=== PATIENT | female | born 1995 | race Two or more races ===

== ENCOUNTER 2023-02-25 04:49 | Outpatient (CLI) | payer OTHER ==
[~2023-02-25] VITALS: Ht 182.9 cm; Wt 143.1 kg
[2023-02-25] MEDS ORDERED: TUMS500C PO (05:04)
[2023-02-25] MEDS ORDERED: REGL10TA6 PO (05:04)
[2023-02-25] MEDS ORDERED: HOME MED LIST COMPLETE! XX SCH (05:05)
[2023-02-25 06:01] VITALS: BP 104/55
== END 2023-02-25 06:39 | disposition home or self-care (01) ==
LOC: M LDO 04:49
PROVIDERS: ATTEND Specialist
DX: O36.8120 Decreased fetal movements, second trimester, not applicable or unspecified (principal); O30.042 Twin pregnancy, dichorionic/diamniotic, second trimester; O99.212 Obesity complicating pregnancy, second trimester; E66.9 Obesity, unspecified; O99.612 Diseases of the digestive system complicating pregnancy, second trimester; K50.90 Crohn's disease, unspecified, without complications; O99.842 Bariatric surgery status complicating pregnancy, second trimester; Y92.9 Unspecified place or not applicable; Y93.9 Activity, unspecified; Y99.9 Unspecified external cause status; Z04.1 Encounter for examination and observation following transport accident; Z3A.27 27 weeks gestation of pregnancy
CPT/HCPCS: 59025; G0463

== ENCOUNTER → 2023-03-05 | Outpatient (CLI) | payer OTHER ==
[~2023-03-05] MED LIST: REGL10TA6 PO; TUMS500C PO
== END ==
LOC: M WHC 11:33 → EDUNIT# 12:00
PROVIDERS: ATTEND Obstetrics & Gynecology
DX: O30.043 Twin pregnancy, dichorionic/diamniotic, third trimester (principal); Z3A.28 28 weeks gestation of pregnancy

== ENCOUNTER 2023-03-13 18:34 | Outpatient (CLI) | payer OTHER ==
[~2023-03-13] VITALS: Ht 182.9 cm; Wt 141.4 kg
[2023-03-13] MEDS ORDERED: LR 1,000 ML IV ONE (19:10)
[2023-03-13] MEDS ORDERED: PROMETHAZINE 25MG/ML 1ML VIAL IV ONE (19:10)
[2023-03-13 19:17] VITALS: BP 120/68
[2023-03-13] MEDS ORDERED: CALCIUM CARBONATE 500 MG CHEW U/D PO ONE (19:55)
[2023-03-13] MEDS ORDERED: MULTIVITAMIN -ADULT INJECTION 10 ML, THIAMINE INJection 100 MG, FOLIC ACID 1 MG in NS 1... IV ONE (20:00)
[2023-03-13] MEDS ORDERED: ONDA4TAB6 PO (20:20)
[2023-03-13 20:25] LABS: HEMOGLOBIN 11.3 g/dl (12.0-15.5); MEAN CORPUSCULAR HEMOGLOBIN 33.3 pg (27.0-33.0); MEAN CORPUSCULAR HGB CONC 34.2 g/dl (32.0-36.5); MEAN CORPUSCULAR VOLUME 97.3 fl (80.0-96.0); PLATELET COUNT, AUTOMATED 305 10^3/uL (150-450); RED BLOOD COUNT 3.39 10^6/uL (4.00-5.40); WHITE BLOOD COUNT 8.9 10^3/uL (4.0-10.0)
[2023-03-13 20:48] LABS: ALBUMIN 2.2 G/DL (3.2-5.2); ALKALINE PHOSPHATASE 95 U/L (46-116); ALT/SGPT 15 U/L (7.0-40); AST/SGOT 25 U/L (<34); BILIRUBIN,TOTAL 1.3 MG/DL (0.3-1.2); BLOOD UREA NITROGEN < 5 MG/DL (9-23); CALCIUM LEVEL 8.3 MG/DL (8.5-10.1); CARBON DIOXIDE LEVEL 23 MMOL/L (20-31); CHLORIDE LEVEL 109 MMOL/L (98-107); CREATININE FOR GFR 0.29 MG/DL (0.55-1.30); GLOMERULAR FILTRATION RATE > 60.0 (>60); GLUCOSE, FASTING 84 MG/DL (60-100); SODIUM LEVEL 143 MMOL/L (136-145); TOTAL PROTEIN 5.5 G/DL (5.7-8.2)
[2023-03-13 20:58] VITALS: BP 125/62
[2023-03-13] MEDS ORDERED: HOME MED LIST COMPLETE! XX SCH (21:20)
[2023-03-13] MEDS: KCL 10MEQ/100ML SWI (KRUN) 10 MEQ in IV 1 EA IV SCH ×2 (21:54→22:57)
[2023-03-14] MEDS: KCL 10MEQ/100ML SWI (KRUN) 10 MEQ in IV 1 EA IV SCH ×2 (00:01→01:03)
[2023-03-14 01:33] VITALS: BP 116/69
[2023-03-14] MEDS ORDERED: ONDANSETRON 4MG 2ML VIAL IV PRN (02:00)
[2023-03-14] MEDS ORDERED: ONDANSETRON 4MG 2ML VIAL IV SCH (02:00)
[2023-03-14] MEDS ORDERED: ONDANSETRON 4MG 2ML VIAL IV ONE (05:05)
[2023-03-14] MEDS ORDERED: POTASSIUM CHLORIDE 10MEQ SR TABLET PO ONE (05:05)
[2023-03-14 05:16] VITALS: BP 127/71
== END 2023-03-14 05:45 | disposition home or self-care (01) ==
LOC: M LDO 18:34
PROVIDERS: ATTEND Advanced Practice Midwife
DX: O21.8 Other vomiting complicating pregnancy (principal); O99.613 Diseases of the digestive system complicating pregnancy, third trimester; K50.90 Crohn's disease, unspecified, without complications; O30.042 Twin pregnancy, dichorionic/diamniotic, second trimester; O99.843 Bariatric surgery status complicating pregnancy, third trimester; Z3A.30 30 weeks gestation of pregnancy
CPT/HCPCS: 36415; 59025; 80053; 81001; 84132; 85027; 87086; 96365; 96366; 96374; 96376; G0463; J2405; J2550; J3411

== ENCOUNTER 2023-03-28 17:34 | Outpatient (CLI) | payer OTHER ==
[~2023-03-28] VITALS: Ht 182.9 cm; Wt 146.9 kg
[~2023-03-28 17:34] MED LIST changes: +ONDA4TAB6 PO
[2023-03-28 18:10] VITALS: BP 123/68
== END 2023-03-28 19:56 | disposition home or self-care (01) ==
LOC: M LDO 17:34
PROVIDERS: ATTEND Specialist
DX: O36.8131 Decreased fetal movements, third trimester, fetus 1 (principal); O30.043 Twin pregnancy, dichorionic/diamniotic, third trimester; O99.843 Bariatric surgery status complicating pregnancy, third trimester; Z3A.32 32 weeks gestation of pregnancy
CPT/HCPCS: 59025; G0463

== ENCOUNTER → 2023-03-31 | Outpatient (CLI) | payer OTHER | LOC: M WHC 11:11 | PROVIDERS: ATTEND Advanced Practice Midwife | DX: O30.043 Twin pregnancy, dichorionic/diamniotic, third trimester (principal); Z3A.32 32 weeks gestation of pregnancy | CPT/HCPCS: 59025; 76816; 76820; G0463 ==

== ENCOUNTER 2023-04-10 19:46 | Inpatient (IN) | payer OTHER ==
[~2023-04-10] VITALS: Ht 182.9 cm; Wt 147.6 kg
[~2023-04-10 19:46] MED LIST changes: -ACET325C5 PO; -COLA100C5 PO; -PERCOCET PO
[2023-04-10 20:12] VITALS: BP 125/83
[2023-04-10] MEDS ORDERED: ACET325C5 PO (20:16)
[2023-04-10] MEDS ORDERED: HOME MED LIST COMPLETE! XX SCH (20:20)
[2023-04-10] MEDS ORDERED: LR 1,000 ML IV ONE (20:55)
[2023-04-10 21:09] LABS: HEMATOCRIT 32.5 % (36.0-47.0); HEMOGLOBIN 11.1 g/dl (12.0-15.5); MEAN CORPUSCULAR HGB CONC 34.2 g/dl (32.0-36.5); MEAN CORPUSCULAR VOLUME 99.7 fl (80.0-96.0); PLATELET COUNT, AUTOMATED 358 10^3/uL (150-450); RED BLOOD COUNT 3.26 10^6/uL (4.00-5.40); WHITE BLOOD COUNT 8.7 10^3/uL (4.0-10.0)
[2023-04-10 21:12] LABS: APPEARANCE, URINE HAZY (CLEAR); BACTERIA, URINE AUTO 1+ (NEGATIVE); BILIRUBIN, URINE AUTO NEGATIVE (NEGATIVE); BLOOD, URINE BLOOD NEGATIVE (NEGATIVE); COLOR, URINE AMBER (YELLOW); GLUCOSE, URINE (UA) AUTO NEGATIVE (NEGATIVE); KETONE, URINE AUTO 1+ mg/dL (NEGATIVE); LEUKOCYTE ESTERASE, URINE AUTO 1+ (NEGATIVE); MUCUS, URINE SMALL (NEGATIVE); NITRITE, URINE AUTO NEGATIVE (NEGATIVE); PROTEIN, URINE AUTO 1+ mg/dL (NEGATIVE); RBC, URINE AUTO 1 /HPF (0-3); SPECIFIC GRAVITY URINE AUTO 1.015 (1.002-1.035); SQUAMOUS EPITHELIAL CELL UR AU 21 /HPF (0-6); WBC, URINE AUTO 22 /HPF (0-3)
[2023-04-10] MEDS ORDERED: BETAMETHASONE SOLUSPAN 6MG/ML 5ML VIAL IM ONE (21:20)
[2023-04-10] MEDS ORDERED: LACTATED RINGER'S 1000 ML IV STA (21:24)
[2023-04-10] MEDS ORDERED: TRANEXAMIC ACID INJection 1,000 MG in NS 100 ML IV PRN (21:25)
[2023-04-10] MEDS ORDERED: OXYTOCIN DRIP 30 UNITS in IV 1 EA IV PRN (21:25)
[2023-04-10] MEDS ORDERED: METHYLERGONOVINE MALEATE 0.2MG/ML 1ML VIAL IM PRN (21:25)
[2023-04-10] MEDS ORDERED: CARBOPROST TROMETHAMINE 250 MCG/ML AMP IM PRN (21:25)
[2023-04-10 22:50] VITALS: BP 136/70
[2023-04-10] MEDS ORDERED: AZITHROMYCIN INJ 500 MG, VIAL MATE ADAPTER 1 EACH in NS 250 ML IV ONE (23:55)
[2023-04-10] MEDS ORDERED: ceFAZolin SOD 3 GM IV Place Holder IV ONE (23:55)
[2023-04-10] MEDS ORDERED: BICITRA 30ML SOLN UDC PO ONE (23:55)
[2023-04-11] VITALS (8 sets, daily range): BP systolic 125–151; BP diastolic 65–89; TEMP 97.3; O2SAT 97–100
[2023-04-11] MEDS ORDERED: diphenhydrAMINE 50MG/ML VIAL IV PRN
[2023-04-11] MEDS ORDERED: METOCLOPRAMIDE INJ 10MG/2ML VIAL IV PRN ×2
[2023-04-11] MEDS ORDERED: ONDANSETRON 4MG 2ML VIAL IV PRN
[2023-04-11] MEDS ORDERED: NALOXONE INJ 0.4MG/1ML VIAL IV PRN ×2
[2023-04-11] MEDS ORDERED: **NOTE PATIENT COMMENT** MISC XX SCH
[2023-04-11] MEDS ORDERED: SLF 3 ML SYR IV SCH
[2023-04-11] MEDS ORDERED: fentaNYL 100 MCG/2 ML INJECTION IV PRN
[2023-04-11] MEDS ORDERED: MEPERIDINE 25 MG/ML 1ML VIAL IV PRN
[2023-04-11] MEDS ORDERED: MORPHINE PRES-FREE INJ 10 MG/10 ML VIAL As Ordered ONE (00:17)
[2023-04-11] MEDS ORDERED: ONDANSETRON 4MG 2ML VIAL As Ordered ONE (00:18)
[2023-04-11] MEDS ORDERED: KETOROLAC 60MG 2ML VIAL As Ordered ONE (00:18)
[2023-04-11] MEDS ORDERED: ceFAZolin SOD 2 GM in IV 1 EA IV ONE (00:20)
[2023-04-11] MEDS ORDERED: ceFAZolin SOD 1 GM in D5W MINI-BAG PLUS 50 ML IV ONE (00:20)
[2023-04-11] MEDS ORDERED: SIMETHICONE 80MG CHEW TAB PO PRN (00:55)
[2023-04-11] MEDS ORDERED: OXYTOCIN DRIP 30 UNITS in IV 1 EA IV SCH (00:55)
[2023-04-11] MEDS ORDERED: ONDANSETRON 4MG TAB PO PRN (00:55)
[2023-04-11] MEDS ORDERED: RHOGAM 300MCG (1500IU) INJ IM SCH (00:55)
[2023-04-11] MEDS ORDERED: MOM 30ML SUSPENSION UDC PO PRN (00:55)
[2023-04-11] MEDS ORDERED: ACETAMINOPHEN 1000MG 100ML IV BAG As Ordered ONE (01:09)
[2023-04-11] MEDS ORDERED: OXYTOCIN 30UNITS IN 0.9% NaCl 500ML IV BAG As Ordered ONE ×3 (01:40→02:24)
[2023-04-11] MEDS ORDERED: ePHEDrine SULFATE 25 MG/5 ML(5MG/ML) SYRINGE As Ordered ONE ×2 (02:27→02:40)
[2023-04-11] MEDS ORDERED: oxyCODONE 5MG TAB PO ONE (04:00)
[2023-04-11] MEDS ORDERED: oxyCODONE 5MG TAB As Ordered ONE (04:02)
[2023-04-11] MEDS: PRENATAL VITAMINS CHEWABLE TABLET PO SCH (08:27)
[2023-04-11] MEDS: DOCUSATE SODIUM 100MG CAPSULE PO SCH ×2 (08:27→20:18)
[2023-04-11] MEDS: PERCOCET 5MG/325MG TAB PO PRN ×3 (08:28→20:20)
[2023-04-11] MEDS ORDERED: ENOXAPARIN 80MG/0.8ML SYRINGE (J1650 PER 10MG) SQ SCH (09:00)
[2023-04-11] MEDS: ENOXAPARIN 40MG/0.4ML SYRINGE (J1650 PER 10MG) SC SCH (18:39)
[2023-04-11] MEDS: FAMOTIDINE 20 MG TAB PO PRN (18:40)
[2023-04-12] MEDS ORDERED: UNRESOLVED CLARIFICATION ENTRY XX SCH (00:01)
[2023-04-12] MEDS: PERCOCET 5MG/325MG TAB PO PRN ×4 (00:36→21:28)
[2023-04-12 02:00] VITALS: BP 113/65
[2023-04-12 06:00] VITALS: BP 122/77
[2023-04-12] MEDS: ENOXAPARIN 40MG/0.4ML SYRINGE (J1650 PER 10MG) SC SCH ×3 (06:02→18:06)
[2023-04-12] MEDS: PRENATAL VITAMINS CHEWABLE TABLET PO SCH (08:00)
[2023-04-12] MEDS: DOCUSATE SODIUM 100MG CAPSULE PO SCH ×2 (08:00→21:27)
[2023-04-12 09:22] LABS: HEMATOCRIT 32.4 % (36.0-47.0); HEMOGLOBIN 10.8 g/dl (12.0-15.5); MEAN CORPUSCULAR HEMOGLOBIN 33.6 pg (27.0-33.0); MEAN CORPUSCULAR HGB CONC 33.3 g/dl (32.0-36.5); MEAN CORPUSCULAR VOLUME 100.9 fl (80.0-96.0); PLATELET COUNT, AUTOMATED 368 10^3/uL (150-450); RED BLOOD COUNT 3.21 10^6/uL (4.00-5.40); WHITE BLOOD COUNT 14.2 10^3/uL (4.0-10.0)
[2023-04-12 10:00] VITALS: BP 136/74; O2SAT 98
[2023-04-12 14:00] VITALS: BP 126/79; O2SAT 99
[2023-04-12 18:00] VITALS: BP 140/80; O2SAT 100
[2023-04-12] MEDS: FAMOTIDINE 20 MG TAB PO PRN (18:00)
[2023-04-12 21:59] VITALS: BP 152/71; O2SAT 100
[2023-04-13 02:00] VITALS: BP 114/54; O2SAT 99
[2023-04-13] MEDS: PERCOCET 5MG/325MG TAB PO PRN ×3 (03:02→16:39)
[2023-04-13 06:03] VITALS: BP 128/74; O2SAT 99
[2023-04-13] MEDS: ENOXAPARIN 40MG/0.4ML SYRINGE (J1650 PER 10MG) SC SCH ×2 (06:20→18:12)
[2023-04-13] MEDS ORDERED: INFLUENZA QUADRIVALENT PF VACCINE 0.5ML SYRINGE IM.IMMUN ONE (09:00)
[2023-04-13] MEDS ORDERED: MEASLES,MUMPS,RUBELLA VACCINE INJ (MMR-II) SC.IMMUN ONE (09:00)
[2023-04-13] MEDS: PRENATAL VITAMINS CHEWABLE TABLET PO SCH (09:26)
[2023-04-13] MEDS: DOCUSATE SODIUM 100MG CAPSULE PO SCH ×2 (09:26→19:35)
[2023-04-13 17:38] VITALS: BP 140/88; O2SAT 100
[2023-04-14] MEDS: PERCOCET 5MG/325MG TAB PO PRN ×3 (00:27→13:28)
[2023-04-14 06:00] VITALS: BP 142/87; O2SAT 99
[2023-04-14] MEDS: ENOXAPARIN 40MG/0.4ML SYRINGE (J1650 PER 10MG) SC SCH (06:12)
[2023-04-14] MEDS: DOCUSATE SODIUM 100MG CAPSULE PO SCH (09:00)
[2023-04-14] MEDS ORDERED: INFLUENZA QUADRIVALENT PF VACCINE 0.5ML SYRINGE IM.IMMUN ONE (09:00)
[2023-04-14] MEDS: PRENATAL VITAMINS CHEWABLE TABLET PO SCH (09:32)
[2023-04-14] MEDS ORDERED: PERCOCET PO (11:40)
[2023-04-14] MEDS ORDERED: COLA100C5 PO (11:40)
== END 2023-04-14 16:38 | disposition home or self-care (01) | DRG 785 ==
LOC: M LDO 19:46 → M LDI 21:46 → M OBS 04-11 04:45
PROVIDERS: ADMIT Advanced Practice Midwife; ATTEND Obstetrics & Gynecology
PROC: 0UT70ZZ Resection of Bilateral Fallopian Tubes, Open Approach (ICD-10-PCS; 2023-04-11)
PROC: 10D00Z1 Extraction of Products of Conception, Low, Open Approach (ICD-10-PCS; principal; 2023-04-11 00:05)
DX: O60.14X1 Preterm labor third trimester with preterm delivery third trimester, fetus 1 (principal); O60.14X2 Preterm labor third trimester with preterm delivery third trimester, fetus 2; O30.043 Twin pregnancy, dichorionic/diamniotic, third trimester; O99.844 Bariatric surgery status complicating childbirth; Z37.2 Twins, both liveborn; Z3A.33 33 weeks gestation of pregnancy; O64.1XX1 Obstructed labor due to breech presentation, fetus 1; O64.1XX2 Obstructed labor due to breech presentation, fetus 2; Z30.2 Encounter for sterilization; O69.81X2 Labor and delivery complicated by cord around neck, without compression, fetus 2

== ENCOUNTER → 2023-04-10 | Outpatient (REF) | payer OTHER ==
[~2023-04-10] MED LIST changes: +ACET325C5 PO; +COLA100C5 PO; +PERCOCET PO
== END ==
LOC: M SFHCWAGY 12:57
PROVIDERS: ATTEND Specialist
DX: O30.043 Twin pregnancy, dichorionic/diamniotic, third trimester (principal)

== ENCOUNTER → 2023-05-26 | Outpatient (CLI) | payer OTHER ==
[~2023-05-26] MED LIST changes: +ACET325C5 PO; +COLA100C5 PO; +PERCOCET PO
[2023-05-26 14:19] LABS: BASO % 0.4 % (0.0-1.0); EOS # 0.1 10^3/uL (0.0-0.5); EOS % 1.2 % (0.0-3.0); HEMATOCRIT 40.1 % (36.0-47.0); HEMOGLOBIN 12.5 g/dl (12.0-15.5); LYMPH # 2.3 10^3/uL (1.5-5.0); LYMPH % 25.4 % (24.0-44.0); MEAN CORPUSCULAR HEMOGLOBIN 29.6 pg (27.0-33.0); MEAN CORPUSCULAR HGB CONC 31.2 g/dl (32.0-36.5); MEAN CORPUSCULAR VOLUME 94.8 fl (80.0-96.0); MONO # 0.6 10^3/uL (0.0-0.8); MONO % 6.3 % (2.0-8.0); NEUTROPHILS % 66.5 % (36.0-66.0); PLATELET COUNT, AUTOMATED 318 10^3/uL (150-450); RED BLOOD COUNT 4.23 10^6/uL (4.00-5.40); WHITE BLOOD COUNT 9.1 10^3/uL (4.0-10.0)
[2023-05-26 15:03] LABS: TOTAL 25(OH) VITAMIN D 14.5 NG/ML (20.0-100.0); VITAMIN B12 LEVEL 359 PG/ML (211-911)
[2023-05-26 15:04] LABS: ALKALINE PHOSPHATASE 67 U/L (46-116); ALT/SGPT 12 U/L (7.0-40); AST/SGOT 9 U/L (<34); BILIRUBIN,TOTAL 0.7 MG/DL (0.3-1.2); BLOOD UREA NITROGEN 6 MG/DL (9-23); CALCIUM LEVEL 8.6 MG/DL (8.5-10.1); CARBON DIOXIDE LEVEL 31 MMOL/L (20-31); CHLORIDE LEVEL 111 MMOL/L (98-107); CHOLESTEROL LEVEL 188 MG/DL (<200); CHOLESTEROL RISK RATIO 3.44 (<5); CREATININE FOR GFR 0.61 MG/DL (0.55-1.30); GLOMERULAR FILTRATION RATE > 60.0 (>60); GLUCOSE, FASTING 79 MG/DL (60-100); HDL CHOLESTEROL 54.6 MG/DL (>40); LDL CHOLESTEROL 114.6 MG/DL (<100); NON-HDL-C 133.4 MG/DL; POTASSIUM SERUM 3.3 MMOL/L (3.5-5.1); SODIUM LEVEL 144 MMOL/L (136-145); TOTAL PROTEIN 6.5 G/DL (5.7-8.2); TRIGLYCERIDES LEVEL 94 MG/DL (<150)
[2023-05-26 15:05] LABS: FREE T4 0.84 NG/DL (0.89-1.76); THYROID STIMULATING HORMONE 0.573 uIU/ML (0.55-4.78)
== END ==
LOC: M PLALAB 10:23
PROVIDERS: ATTEND Nurse Practitioner Family
DX: F32.1 Major depressive disorder, single episode, moderate (principal); D64.9 Anemia, unspecified; E55.9 Vitamin D deficiency, unspecified; Z13.220 Encounter for screening for lipoid disorders; K50.919 Crohn's disease, unspecified, with unspecified complications; Z13.1 Encounter for screening for diabetes mellitus

== ENCOUNTER → 2023-07-29 | Outpatient (CLI) | payer OTHER ==
[2023-07-29 14:12] LABS: BASO % 0.4 % (0.0-1.0); EOS # 0.1 10^3/uL (0.0-0.5); EOS % 1.3 % (0.0-3.0); HEMATOCRIT 37.9 % (36.0-47.0); LYMPH # 2.4 10^3/uL (1.5-5.0); LYMPH % 25.7 % (24.0-44.0); MEAN CORPUSCULAR HEMOGLOBIN 28.2 pg (27.0-33.0); MEAN CORPUSCULAR HGB CONC 31.7 g/dl (32.0-36.5); MONO # 0.6 10^3/uL (0.0-0.8); MONO % 6.1 % (2.0-8.0); NEUTROPHILS # 6.1 10^3/uL (1.5-8.5); NEUTROPHILS % 66.3 % (36.0-66.0); PLATELET COUNT, AUTOMATED 350 10^3/uL (150-450); RED BLOOD COUNT 4.26 10^6/uL (4.00-5.40); WHITE BLOOD COUNT 9.2 10^3/uL (4.0-10.0)
[2023-07-29 14:19] LABS: ERYTHROCYTE SEDIMENTATION RATE 31 mm/hr (0-20)
[2023-07-29 14:41] LABS: C REACTIVE PROTEIN QUANTITATIV < 0.40 MG/DL (<1.0)
[2023-07-29 15:03] LABS: ALBUMIN 3.3 G/DL (3.2-5.2); ALKALINE PHOSPHATASE 60 U/L (46-116); ALT/SGPT 14 U/L (7.0-40); AST/SGOT 10 U/L (<34); BILIRUBIN,TOTAL 0.5 MG/DL (0.3-1.2); BLOOD UREA NITROGEN 12 MG/DL (9-23); CALCIUM LEVEL 8.3 MG/DL (8.5-10.1); CARBON DIOXIDE LEVEL 27 MMOL/L (20-31); CHLORIDE LEVEL 107 MMOL/L (98-107); CREATININE FOR GFR 0.64 MG/DL (0.55-1.30); GLOMERULAR FILTRATION RATE > 60.0 (>60); GLUCOSE, FASTING 82 MG/DL (60-100); SODIUM LEVEL 140 MMOL/L (136-145); TOTAL PROTEIN 6.7 G/DL (5.7-8.2); VITAMIN B12 LEVEL 309 PG/ML (211-911)
== END ==
LOC: M LAB 13:20
PROVIDERS: ATTEND Internal Medicine Gastroenterology
DX: K50.00 Crohn's disease of small intestine without complications (principal)

== ENCOUNTER 2023-10-26 06:45 | Day surgery (SDC) | payer OTHER ==
[~2023-10-26] VITALS: Ht 182.9 cm; Wt 136.5 kg
[~2023-10-26 06:45] MED LIST changes: +ONDA-282 PO; -ONDA4TAB6 PO; +SERT50TA29 PO; +STEL90IN SC; +ZOLO100T PO
[2023-10-26] MEDS: NS 1,000 ML IV ONE (07:09)
[2023-10-26] MEDS ORDERED: propofoL 200 MG/20 ML VIAL As Ordered ONE (07:45)
[2023-10-26] MEDS ORDERED: LIDOCAINE 2% 100MG/5ML SDV (FOR ANES.) As Ordered ONE (07:45)
[2023-10-26 07:57] VITALS: TEMP 97.5
[2023-10-26 08:13] VITALS: BP 123/88; O2SAT 100
== END 2023-10-26 08:17 | disposition home or self-care (01) ==
LOC: M OPP 06:45
PROVIDERS: ATTEND Internal Medicine Gastroenterology
DX: K64.8 Other hemorrhoids (principal); Z98.0 Intestinal bypass and anastomosis status; K52.89 Other specified noninfective gastroenteritis and colitis; K50.10 Crohn's disease of large intestine without complications; Z79.1 Long term (current) use of non-steroidal anti-inflammatories (NSAID); Z79.899 Other long term (current) drug therapy; Z79.620 Long term (current) use of immunosuppressive biologic

== ENCOUNTER → 2023-10-29 | Outpatient (REF) | payer OTHER | LOC: M PLALAB 08:57 | PROVIDERS: ATTEND Advanced Practice Midwife | DX: Z12.4 Encounter for screening for malignant neoplasm of cervix (principal) ==

== ENCOUNTER → 2024-01-08 | Outpatient (CLI) | payer OTHER ==
[2024-01-08 18:20] LABS: BASO % 0.4 % (0.0-1.0); EOS # 0.2 10^3/uL (0.0-0.5); EOS % 1.8 % (0.0-3.0); HEMATOCRIT 34.6 % (36.0-47.0); LYMPH # 2.4 10^3/uL (1.5-5.0); LYMPH % 26.1 % (24.0-44.0); MEAN CORPUSCULAR HEMOGLOBIN 22.7 pg (27.0-33.0); MEAN CORPUSCULAR HGB CONC 28.9 g/dl (32.0-36.5); MEAN CORPUSCULAR VOLUME 78.5 fl (80.0-96.0); MONO # 0.7 10^3/uL (0.0-0.8); MONO % 7.2 % (2.0-8.0); NEUTROPHILS # 5.8 10^3/uL (1.5-8.5); NEUTROPHILS % 64.2 % (36.0-66.0); PLATELET COUNT, AUTOMATED 414 10^3/uL (150-450); RED BLOOD COUNT 4.41 10^6/uL (4.00-5.40)
[2024-01-08 18:53] LABS: ALBUMIN 3.3 G/DL (3.2-5.2); ALKALINE PHOSPHATASE 52 U/L (46-116); ALT/SGPT 13 U/L (7.0-40); AST/SGOT < 8 U/L (<34); BILIRUBIN,TOTAL 0.4 MG/DL (0.3-1.2); BLOOD UREA NITROGEN 11 MG/DL (9-23); CALCIUM LEVEL 8.8 MG/DL (8.5-10.1); CARBON DIOXIDE LEVEL 29 MMOL/L (20-31); CHLORIDE LEVEL 110 MMOL/L (98-107); CHOLESTEROL LEVEL 151 MG/DL (<200); CHOLESTEROL RISK RATIO 2.76 (<5); CREATININE FOR GFR 0.61 MG/DL (0.55-1.30); FREE T4 1.08 NG/DL (0.89-1.76); GLOMERULAR FILTRATION RATE > 60.0 (>60); GLUCOSE, FASTING 70 MG/DL (60-100); HDL CHOLESTEROL 54.6 MG/DL (>40); IRON (FE) 23 UG/DL (50-170); LDL CHOLESTEROL 78.2 MG/DL (<100); NON-HDL-C 96.4 MG/DL; PERCENT SATURATION 5.5 % (13.2-45.0); POTASSIUM SERUM 4.5 MMOL/L (3.5-5.1); SODIUM LEVEL 141 MMOL/L (136-145); THYROID STIMULATING HORMONE 0.428 uIU/ML (0.55-4.78); TOTAL IRON BINDING CAPACITY 417 UG/DL (250-425); TOTAL PROTEIN 7.1 G/DL (5.7-8.2); TRIGLYCERIDES LEVEL 91 MG/DL (<150)
[2024-01-08 18:55] LABS: VITAMIN B12 LEVEL 375 PG/ML (211-911)
== END ==
LOC: M PLALAB 15:46
PROVIDERS: ATTEND Nurse Practitioner Family
DX: D64.9 Anemia, unspecified (principal); E03.8 Other specified hypothyroidism; E78.2 Mixed hyperlipidemia; E53.8 Deficiency of other specified B group vitamins

== ENCOUNTER → 2024-05-13 | Outpatient (CLI) | payer OTHER ==
[2024-05-13 11:16] LABS: BASO % 0.4 % (0.0-1.0); EOS # 0.1 10^3/uL (0.0-0.5); EOS % 0.8 % (0.0-3.0); HEMATOCRIT 33.3 % (36.0-47.0); HEMOGLOBIN 9.6 g/dl (12.0-15.5); LYMPH # 1.2 10^3/uL (1.5-5.0); MEAN CORPUSCULAR HEMOGLOBIN 21.8 pg (27.0-33.0); MEAN CORPUSCULAR HGB CONC 28.8 g/dl (32.0-36.5); MEAN CORPUSCULAR VOLUME 75.7 fl (80.0-96.0); MONO # 0.5 10^3/uL (0.0-0.8); MONO % 7.3 % (2.0-8.0); NEUTROPHILS # 5.3 10^3/uL (1.5-8.5); NEUTROPHILS % 74.2 % (36.0-66.0); PLATELET COUNT, AUTOMATED 417 10^3/uL (150-450); WHITE BLOOD COUNT 7.2 10^3/uL (4.0-10.0)
[2024-05-13 11:38] LABS: ALBUMIN 3.1 G/DL (3.2-5.2); ALKALINE PHOSPHATASE 47 U/L (35-104); ALT/SGPT 12 U/L (7.0-40); AST/SGOT < 8 U/L (<34); BILIRUBIN,TOTAL 0.6 MG/DL (0.3-1.2); BLOOD UREA NITROGEN 8 MG/DL (9-23); CALCIUM LEVEL 8.8 MG/DL (8.5-10.1); CARBON DIOXIDE LEVEL 28 MMOL/L (20-31); CHLORIDE LEVEL 107 MMOL/L (98-107); CHOLESTEROL LEVEL 160 MG/DL (<200); CHOLESTEROL RISK RATIO 2.74 (<5); CREATININE FOR GFR 0.65 MG/DL (0.55-1.30); GLOMERULAR FILTRATION RATE > 60.0 (>60); GLUCOSE, FASTING 77 MG/DL (60-100); HDL CHOLESTEROL 58.3 MG/DL (>40); IRON (FE) 20 UG/DL (50-170); LDL CHOLESTEROL 86.7 MG/DL (<100); NON-HDL-C 101.7 MG/DL; POTASSIUM SERUM 4.1 MMOL/L (3.5-5.1); SODIUM LEVEL 142 MMOL/L (136-145); TRIGLYCERIDES LEVEL 75 MG/DL (<150)
[2024-05-13 11:45] LABS: FOLATE 7.36 NG/ML (>5.4); VITAMIN B12 LEVEL 422 PG/ML (211-911)
[2024-05-13 11:47] LABS: FREE T4 1.03 NG/DL (0.89-1.76); THYROID STIMULATING HORMONE 0.566 uIU/ML (0.55-4.78)
[2024-05-13 12:12] LABS: PERCENT SATURATION 4.8 % (13.2-45.0); TOTAL IRON BINDING CAPACITY 419 UG/DL (250-425)
== END ==
LOC: M LAB 10:00
PROVIDERS: ATTEND Nurse Practitioner Family
DX: D64.9 Anemia, unspecified (principal); E03.8 Other specified hypothyroidism; E53.8 Deficiency of other specified B group vitamins; E78.2 Mixed hyperlipidemia

== ENCOUNTER → 2024-12-27 | Outpatient (CLI) | payer OTHER ==
[2024-12-27 17:32] LABS: BASO # 0.1 10^3/uL (0.0-0.2); BASO % 0.5 % (0.0-1.0); EOS # 0.1 10^3/uL (0.0-0.5); EOS % 1.0 % (0.0-3.0); LYMPH # 2.3 10^3/uL (1.5-5.0); LYMPH % 24.0 % (24.0-44.0); MONO # 0.6 10^3/uL (0.0-0.8); MONO % 6.5 % (2.0-8.0); NEUTROPHILS # 6.6 10^3/uL (1.5-8.5); NEUTROPHILS % 67.8 % (36.0-66.0); PLATELET COUNT, AUTOMATED 497 10^3/uL (150-450)
[2024-12-27 18:06] LABS: ALT/SGPT 13 U/L (7.0-40); AST/SGOT 10 U/L (<34); CALCIUM LEVEL 8.5 MG/DL (8.5-10.1); CARBON DIOXIDE LEVEL 27 MMOL/L (20-31); CHLORIDE LEVEL 108 MMOL/L (98-107); CHOLESTEROL LEVEL 151 MG/DL (<200); CHOLESTEROL RISK RATIO 2.60 (<5); CREATININE FOR GFR 0.67 MG/DL (0.55-1.30); GLOMERULAR FILTRATION RATE > 90.0 (>60); IRON (FE) 12 UG/DL (50-170); LDL CHOLESTEROL 56.3 MG/DL (<100); NON-HDL-C 93.1 MG/DL; PERCENT SATURATION 3.0 % (13.2-45.0); POTASSIUM SERUM 4.0 MMOL/L (3.5-5.1); SODIUM LEVEL 143 MMOL/L (136-145); TRIGLYCERIDES LEVEL 184 MG/DL (<150)
[2024-12-27 18:07] LABS: FREE T4 0.99 NG/DL (0.89-1.76)
[2024-12-27 18:08] LABS: TOTAL 25(OH) VITAMIN D 17.3 NG/ML (20.0-100.0); VITAMIN B12 LEVEL 394 PG/ML (211-911)
[2024-12-27 18:19] LABS: APPEARANCE, URINE CLEAR (CLEAR); BACTERIA, URINE AUTO NEGATIVE (NEGATIVE); BILIRUBIN, URINE AUTO NEGATIVE (NEGATIVE); BLOOD, URINE BLOOD NEGATIVE (NEGATIVE); GLUCOSE, URINE (UA) AUTO NEGATIVE (NEGATIVE); KETONE, URINE AUTO NEGATIVE (NEGATIVE); LEUKOCYTE ESTERASE, URINE AUTO NEGATIVE (NEGATIVE); NITRITE, URINE AUTO NEGATIVE (NEGATIVE); PROTEIN, URINE AUTO NEGATIVE (NEGATIVE); RBC, URINE AUTO 0 /HPF (0-3); SPECIFIC GRAVITY URINE AUTO 1.006 (1.002-1.035); SQUAMOUS EPITHELIAL CELL UR AU 3 /HPF (0-6); UROBILINOGEN, URINE AUTO 0.2 mg/dL (0.0-2.0); WBC, URINE AUTO 2 /HPF (0-3)
== END ==
LOC: M PLALAB 15:49
PROVIDERS: ATTEND Nurse Practitioner Family
DX: Z00.00 Encounter for general adult medical examination without abnormal findings (principal); D64.9 Anemia, unspecified; R39.9 Unspecified symptoms and signs involving the genitourinary system; E03.8 Other specified hypothyroidism; E78.2 Mixed hyperlipidemia; E55.9 Vitamin D deficiency, unspecified; E53.8 Deficiency of other specified B group vitamins

== ENCOUNTER 2025-01-03 08:49 | Outpatient (CLI) | payer OTHER ==
[~2025-01-03] VITALS: Ht 182.9 cm; Wt 136.3 kg
[~2025-01-03 08:49] MED LIST changes: +ALBUTEROL SULFATE 2.5 MG/0.5 ML INH CONCENTRATE NEB SOLN INH PRN; +EPINEPHrine INJ 1 MG/ML 1ML AMP IM PRN; +diphenhydrAMINE 50 MG/ML VIAL IV PRN
[2025-01-03 09:30] VITALS: BP 122/57; O2SAT 100
[2025-01-03] MEDS: IRON SUCROSE 25 MG in NS 23.75 ML IV ONE (09:39)
[2025-01-03] MEDS: IRON SUCROSE 375 MG in NS 250 ML IV ONE (10:32)
[2025-01-03 13:30] VITALS: BP 134/65; O2SAT 100
== END 2025-01-03 13:30 ==
LOC: M INFU 08:49
PROVIDERS: ATTEND Nurse Practitioner Family
DX: D64.9 Anemia, unspecified (principal)
CPT/HCPCS: 96365; 96366; J1756

== ENCOUNTER 2025-01-17 13:24 | Outpatient (CLI) | payer OTHER ==
[~2025-01-17] VITALS: Ht 182.9 cm; Wt 136.0 kg
[2025-01-17 13:45] VITALS: BP 121/62; O2SAT 100
[2025-01-17] MEDS: IRON SUCROSE 400 MG in NS 250 ML OVER 2.5 HRS IV ONE (14:13)
== END 2025-01-17 16:49 ==
LOC: M INFU 13:24
PROVIDERS: ATTEND Nurse Practitioner Family
DX: D64.9 Anemia, unspecified (principal)
CPT/HCPCS: 96365; 96366; J1756

== ENCOUNTER → 2025-02-14 | Outpatient (CLI) | payer OTHER ==
[~2025-02-14] MED LIST changes: -ALBUTEROL SULFATE 2.5 MG/0.5 ML INH CONCENTRATE NEB SOLN INH PRN; -EPINEPHrine INJ 1 MG/ML 1ML AMP IM PRN; -diphenhydrAMINE 50 MG/ML VIAL IV PRN
[2025-02-14 18:24] LABS: ALT/SGPT 15 U/L (7.0-40); AST/SGOT 11 U/L (<34); BASO # 0.0 10^3/uL (0.0-0.2); BASO % 0.5 % (0.0-1.0); CALCIUM LEVEL 8.5 MG/DL (8.5-10.1); CARBON DIOXIDE LEVEL 28 MMOL/L (20-31); CHLORIDE LEVEL 106 MMOL/L (98-107); CREATININE FOR GFR 0.67 MG/DL (0.55-1.30); EOS # 0.1 10^3/uL (0.0-0.5); EOS % 1.2 % (0.0-3.0); GLOMERULAR FILTRATION RATE > 90.0 (>60); IRON (FE) 24 UG/DL (50-170); LYMPH # 2.4 10^3/uL (1.5-5.0); LYMPH % 27.8 % (24.0-44.0); MONO # 0.6 10^3/uL (0.0-0.8); MONO % 6.5 % (2.0-8.0); NEUTROPHILS # 5.5 10^3/uL (1.5-8.5); NEUTROPHILS % 63.8 % (36.0-66.0); PERCENT SATURATION 6.0 % (13.2-45.0); PLATELET COUNT, AUTOMATED 366 10^3/uL (150-450); POTASSIUM SERUM 4.0 MMOL/L (3.5-5.1); PTH INTACT 49.8 PG/ML (18.5-88.0); SODIUM LEVEL 142 MMOL/L (136-145)
[2025-02-14 18:25] LABS: TOTAL 25(OH) VITAMIN D 23.1 NG/ML (20.0-100.0); VITAMIN B12 LEVEL 501 PG/ML (211-911)
== END ==
LOC: M PLALAB 15:15
PROVIDERS: ATTEND Specialist
DX: E55.9 Vitamin D deficiency, unspecified (principal); D64.9 Anemia, unspecified